=== PATIENT | female | born 1985 | race Caucasian/White ===

== ENCOUNTER 2023-10-02 03:23 | Emergency (ER) | payer MEDICAID, OTHER ==
[~2023-10-02] VITALS: Ht 170.2 cm; Wt 122.7 kg
[2023-10-02] MEDS: ondansetron/PF 4mg/2ml inj IV ONE (07:47)
[2023-10-02] MEDS: morphine 4 MG/ML inj SYRINge IV PRN (07:48)
[2023-10-02] MEDS: normal saline 1000ML IV soln IVB ONE (07:48)
[2023-10-02 08:01] LABS: BILIRUBIN,URINE MODERATE (Neg); CLARITY,URINE CLOUDY (Clear); COLOR,URINE YELLOW (Yellow); GLUCOSE, URINE NEGATIVE (Neg); KETONES,URINE >=80 mg/dl (Neg); LEUKOCYTE ESTERASE ,URINE NEGATIVE (Neg); NITRITES, URINE NEGATIVE (Neg); OCCULT BLOOD,URINE NEGATIVE (Neg); PROTEIN,URINE 30 mg/dl (Neg); UROBILINOGEN,URINE 0.2 E.U/dL (0.2-1.0)
[2023-10-02 08:05] LABS: BASOPHILS % (AUTO) 0.1 % (0-1); EOSINOPHILS % (AUTO) 0.1 % (0-6); HEMATOCRIT 39.4 % (35.0-45.0); LYMPHOCYTES # (AUTO) 0.9 X10'3 (1.1-4.8); LYMPHOCYTES % (AUTO) 6.1 % (21-51); MEAN CORPUSCULAR HEMOGLOBIN 29.9 PG (27.0-31.0); MEAN CORPUSCULAR HGB CONC 32.9 g/dL (33.0-36.5); MEAN CORPUSCULAR VOLUME 90.9 FL (78-98); MEAN PLATELET VOLUME 8.5 FL (7.4-10.4); MONOCYTES # (AUTO) 1.2 X10'3 (0-0.9); MONOCYTES % (AUTO) 8.5 % (2-12); NEUTROPHILS # (AUTO) 12.2 X10'3 (1.8-7.7); NEUTROPHILS % (AUTO) 85.2 % (42-75); PLATELET COUNT 390 X10'3 (140-440); RED BLOOD COUNT 4.33 X10'6 (4.20-5.60); RED CELL DISTRIBUTION WIDTH 13.6 % (11.5-14.5); WHITE BLOOD COUNT 14.3 X10'3 (4.5-11.0)
[2023-10-02 08:06] LABS: MUCUS STRANDS MANY /LPF (Neg); SQUAMOUS EPITHELIAL CELL,UR MANY /LPF (FEW); UA COLLECTION TYPE NON-SPECIFIED
[2023-10-02 08:08] LABS: BACTERIA,URINE 1+ /HPF (Neg); RBC,URINE 0-2 /HPF (0-2); WBC,URINE 0-4 /HPF (0-4)
[2023-10-02 08:21] LABS: ALBUMIN 3.7 G/DL (3.4-5.0); ANION GAP 14 (8-16); BLOOD UREA NITROGEN 20 MG/DL (7-18); BUN/CREATININE RATIO 17.2 (10.0-20.0); CALCIUM 9.3 MG/DL (8.5-10.1); CHLORIDE 101 MMOL/L (99-107); CREATININE 1.16 MG/DL (0.40-0.90); GLUCOSE 100 MG/DL (70-104); LIPASE 15 U/L (16-77); POTASSIUM 3.5 MMOL/L (3.5-5.1); SODIUM 142 MMOL/L (135-145); TOTAL CARBON DIOXIDE 27.4 MMOL/L (24-32); eCRCL 66 ML/MIN; eGFR 53 ML/MIN
[2023-10-02 09:00] LABS: URINE HCG NEGATIVE (NEG)
[2023-10-02] MEDS ORDERED: PROM25SU9 RC (10:45)
[2023-10-02] MEDS ORDERED: LANS30CA37 PO (10:45)
[2023-10-02] MEDS: proCHLORperazine 10 MG/2 ml inj IV ONE (11:01)
[2023-10-02 11:02] VITALS: PULSE 63
[2023-10-02 11:24] VITALS: BP 112/82; RESP 14; TEMP 98.4; O2SAT 100
== END 2023-10-02 11:29 | disposition home or self-care (01) ==
LOC: ER 03:24
DX: R10.13 Epigastric pain (principal); Z88.0 Allergy status to penicillin; Z88.2 Allergy status to sulfonamides
CPT/HCPCS: 36415; 74176; 80048; 81001; 81025; 83690; 84484; 85025; 96361; 96374; 96375; 99285; J0780; J2270; J2405; J7030

== ENCOUNTER 2023-10-02 22:12 | Emergency (ER) | payer MEDICAID ==
[~2023-10-02] VITALS: Ht 170.2 cm; Wt 122.0 kg
[~2023-10-02 22:12] MED LIST: LANS30CA37 PO; PROM25SU9 RC
[2023-10-03] MEDS: ondansetron/PF 4mg/2ml inj IV ONE (03:29)
[2023-10-03] MEDS: pantoprazole 40 MG vial IV ONE (03:29)
[2023-10-03] MEDS: normal saline 1000ML IV soln IVB ONE (03:32)
[2023-10-03 04:08] LABS: ALBUMIN 3.5 G/DL (3.4-5.0); ANION GAP 14 (8-16); BLOOD UREA NITROGEN 21 MG/DL (7-18); BUN/CREATININE RATIO 18.9 (10.0-20.0); CALCIUM 8.6 MG/DL (8.5-10.1); CHLORIDE 100 MMOL/L (99-107); CREATININE 1.11 MG/DL (0.40-0.90); GLUCOSE 96 MG/DL (70-104); POTASSIUM 3.4 MMOL/L (3.5-5.1); SODIUM 142 MMOL/L (135-145); TOTAL CARBON DIOXIDE 28.3 MMOL/L (24-32); eCRCL 69 ML/MIN; eGFR 56 ML/MIN
[2023-10-03] MEDS: proCHLORperazine 10 MG/2 ml inj IV ONE ×2 (04:58→11:54)
[2023-10-03 09:45] LABS: THYROID STIMULATING HORMONE 5.91 ulU/ml (0.34-4.50)
[2023-10-03 12:13] VITALS: BP 118/79; PULSE 72; RESP 18; TEMP 98; O2SAT 99
== END 2023-10-03 12:16 | disposition home or self-care (01) ==
LOC: ER 22:13
DX: R11.2 Nausea with vomiting, unspecified (principal); E03.9 Hypothyroidism, unspecified; F17.200 Nicotine dependence, unspecified, uncomplicated; Z88.0 Allergy status to penicillin; Z88.2 Allergy status to sulfonamides; Z79.899 Other long term (current) drug therapy
CPT/HCPCS: 36415; 80048; 84439; 84443; 93005; 96365; 96375; 96376; 99285; C9113; J0780; J2405; J7030

== ENCOUNTER 2023-11-19 04:19 | Emergency (ER) | payer MEDICAID ==
[~2023-11-19] VITALS: Ht 170.2 cm; Wt 116.3 kg
[2023-11-19] MEDS ORDERED: ondansetron 4mg rapidly disintigrating tab PO ONE (05:10)
[2023-11-19 05:14] LABS: BASOPHILS # (AUTO) 0.1 X10'3 (0-0.2); BASOPHILS % (AUTO) 0.5 % (0-1); EOSINOPHILS # (AUTO) 0.3 X10'3 (0-0.9); EOSINOPHILS % (AUTO) 2.3 % (0-6); HEMATOCRIT 40.7 % (35.0-45.0); HEMOGLOBIN 13.5 g/dl (12.0-16.0); MEAN CORPUSCULAR HEMOGLOBIN 30.3 PG (27.0-31.0); MEAN CORPUSCULAR HGB CONC 33.2 g/dL (33.0-36.5); MEAN CORPUSCULAR VOLUME 91.3 FL (78-98); MEAN PLATELET VOLUME 8.3 FL (7.4-10.4); MONOCYTES # (AUTO) 0.9 X10'3 (0-0.9); MONOCYTES % (AUTO) 7.3 % (2-12); NEUTROPHILS # (AUTO) 8.7 X10'3 (1.8-7.7); NEUTROPHILS % (AUTO) 72.9 % (42-75); PLATELET COUNT 359 X10'3 (140-440); RED BLOOD COUNT 4.46 X10'6 (4.20-5.60); RED CELL DISTRIBUTION WIDTH 13.3 % (11.5-14.5); WHITE BLOOD COUNT 11.9 X10'3 (4.5-11.0)
[2023-11-19] MEDS: ondansetron/PF 4mg/2ml inj IV ONE (05:17)
[2023-11-19 05:32] LABS: ALANINE AMINOTRANSFERASE 15 U/L (12-78); ALBUMIN 3.5 G/DL (3.4-5.0); ALKALINE PHOSPHATASE 81 IU/L (46-116); ANION GAP 12 (8-16); ASPARTATE AMINO TRANSFERASE 12 U/L (10-37); BILIRUBIN,TOTAL 0.2 MG/DL (0.1-1.0); BLOOD UREA NITROGEN 12 MG/DL (7-18); BUN/CREATININE RATIO 13.8 (10.0-20.0); CALCIUM 8.6 MG/DL (8.5-10.1); CHLORIDE 105 MMOL/L (99-107); CREATININE 0.87 MG/DL (0.40-0.90); GLUCOSE 123 MG/DL (70-104); LIPASE 22 U/L (16-77); POTASSIUM 3.7 MMOL/L (3.5-5.1); SODIUM 140 MMOL/L (135-145); TOTAL CARBON DIOXIDE 23.1 MMOL/L (24-32); TOTAL PROTEIN 7.1 G/DL (6.4-8.2); eCRCL 88 ML/MIN; eGFR 74 ML/MIN
[2023-11-19] MEDS ORDERED: ketorolac trometh. 30mg/ml inj. IV ONE (05:40)
[2023-11-19] MEDS: normal saline 1000ml 1,000 ML IV ONE ×2 (05:47→09:15)
[2023-11-19] MEDS: ketorolac tromethamine 15mg/ml inj. IV ONE (05:48)
[2023-11-19] MEDS: fentaNYL/PF 50MCG/1 ML 2ML syringe IV ONE (05:48)
[2023-11-19] MEDS: proCHLORperazine 10 MG/2 ml inj IV ONE (06:42)
[2023-11-19] MEDS: metoclopramide 5 mg/ml inj IV ONE (09:12)
[2023-11-19 10:24] LABS: BILIRUBIN,URINE SMALL (Neg); CLARITY,URINE SLIGHTLY CLOUDY (Clear); COLOR,URINE YELLOW (Yellow); GLUCOSE, URINE NEGATIVE (Neg); KETONES,URINE 40 mg/dl (Neg); LEUKOCYTE ESTERASE ,URINE NEGATIVE (Neg); NITRITES, URINE NEGATIVE (Neg); OCCULT BLOOD,URINE NEGATIVE (Neg); PROTEIN,URINE NEGATIVE (Neg); UROBILINOGEN,URINE 0.2 E.U/dL (0.2-1.0)
[2023-11-19 10:35] LABS: UA COLLECTION TYPE CLN CATCH MIDSTREAM; URINE HCG NEGATIVE (NEG)
[2023-11-19 10:36] LABS: BACTERIA,URINE FEW /HPF (Neg); MUCUS STRANDS FEW /LPF (Neg); RBC,URINE 0-2 /HPF (0-2); SQUAMOUS EPITHELIAL CELL,UR MODERATE /LPF (FEW); WBC,URINE 0-4 /HPF (0-4)
[2023-11-19 10:43] VITALS: BP 133/77; PULSE 60; RESP 14; TEMP 97.2; O2SAT 98
== END 2023-11-19 10:41 | disposition home or self-care (01) ==
LOC: ER 04:20
DX: R11.15 Cyclical vomiting syndrome unrelated to migraine (principal); E03.9 Hypothyroidism, unspecified; Z88.0 Allergy status to penicillin; Z88.2 Allergy status to sulfonamides; Z79.899 Other long term (current) drug therapy
CPT/HCPCS: 36415; 80053; 81001; 81025; 83690; 85025; 96361; 96374; 96375; 99285; J0780; J1885; J2405; J2765; J3010; J7030

== ENCOUNTER 2023-12-28 03:21 | Emergency (ER) | payer MEDICAID ==
[~2023-12-28] VITALS: Ht 170.2 cm; Wt 122.7 kg
[2023-12-28] MEDS: ondansetron 4mg rapidly disintigrating tab PO ONE (04:28)
[2023-12-28 04:41] LABS: BASOPHILS # (AUTO) 0.1 X10'3 (0-0.2); BASOPHILS % (AUTO) 1.1 % (0-1); EOSINOPHILS % (AUTO) 0.3 % (0-6); HEMATOCRIT 42.9 % (35.0-45.0); HEMOGLOBIN 14.1 g/dl (12.0-16.0); LYMPHOCYTES # (AUTO) 0.9 X10'3 (1.1-4.8); MEAN CORPUSCULAR HEMOGLOBIN 29.8 PG (27.0-31.0); MEAN CORPUSCULAR HGB CONC 32.9 g/dL (33.0-36.5); MEAN CORPUSCULAR VOLUME 90.5 FL (78-98); MEAN PLATELET VOLUME 8.6 FL (7.4-10.4); MONOCYTES # (AUTO) 0.2 X10'3 (0-0.9); MONOCYTES % (AUTO) 2.7 % (2-12); NEUTROPHILS # (AUTO) 4.7 X10'3 (1.8-7.7); NEUTROPHILS % (AUTO) 80.9 % (42-75); PLATELET COUNT 302 X10'3 (140-440); RED BLOOD COUNT 4.75 X10'6 (4.20-5.60); RED CELL DISTRIBUTION WIDTH 13.2 % (11.5-14.5); WHITE BLOOD COUNT 5.8 X10'3 (4.5-11.0)
[2023-12-28 04:53] LABS: GLUCOSE 135 MG/DL (70-104)
[2023-12-28 04:54] LABS: ALANINE AMINOTRANSFERASE 18 U/L (12-78); ALBUMIN 3.9 G/DL (3.4-5.0); ALKALINE PHOSPHATASE 100 IU/L (46-116); ANION GAP 12 (8-16); ASPARTATE AMINO TRANSFERASE 9 U/L (10-37); BILIRUBIN,TOTAL 0.3 MG/DL (0.1-1.0); BLOOD UREA NITROGEN 11 MG/DL (7-18); BUN/CREATININE RATIO 10.7 (10.0-20.0); CHLORIDE 103 MMOL/L (99-107); CREATININE 1.03 MG/DL (0.40-0.90); LIPASE 17 U/L (16-77); POTASSIUM 3.5 MMOL/L (3.5-5.1); SODIUM 140 MMOL/L (135-145); TOTAL CARBON DIOXIDE 25.1 MMOL/L (24-32); TOTAL PROTEIN 7.7 G/DL (6.4-8.2); eCRCL 73 ML/MIN; eGFR 61 ML/MIN
[2023-12-28] MEDS: proCHLORperazine 10 MG/2 ml inj IV ONE (04:57)
[2023-12-28] MEDS: famotidine/PF 10 mg/ml inj IV ONE (05:24)
[2023-12-28] MEDS: metoclopramide 5 mg/ml inj IV ONE (05:25)
[2023-12-28] MEDS: normal saline 1000ml 1,000 ML IV ONE (05:25)
[2023-12-28 05:51] LABS: BILIRUBIN,URINE NEGATIVE (Neg); CLARITY,URINE CLOUDY (Clear); COLOR,URINE YELLOW (Yellow); GLUCOSE, URINE NEGATIVE (Neg); KETONES,URINE 15 mg/dl (Neg); LEUKOCYTE ESTERASE ,URINE NEGATIVE (Neg); NITRITES, URINE NEGATIVE (Neg); OCCULT BLOOD,URINE NEGATIVE (Neg); PH,URINE 5.5 (4.8-8.0); PROTEIN,URINE NEGATIVE (Neg); URINE HCG NEGATIVE (NEG); UROBILINOGEN,URINE 0.2 E.U/dL (0.2-1.0)
[2023-12-28 06:00] LABS: MUCUS STRANDS MODERATE /LPF (Neg); SQUAMOUS EPITHELIAL CELL,UR MANY /LPF (FEW); UA COLLECTION TYPE CLN CATCH MIDSTREAM
[2023-12-28 06:01] LABS: HYALINE CASTS 0-3 /LPF (NEGATIVE)
[2023-12-28 06:02] LABS: AMORPHOUS URATES 1+; BACTERIA,URINE 2+ /HPF (Neg)
[2023-12-28] MEDS: normal saline 1000ML IV soln IVB ONE (07:27)
[2023-12-28] MEDS: diphenhydrAMINE 50 mg/ml inj IV ONE (07:40)
[2023-12-28] MEDS: magnesium 2GM in 50ml NS 50 ML IV ONE (07:41)
[2023-12-28] MEDS: haloperidol lactate 5mg/ml inj IM ONE (07:41)
[2023-12-28] MEDS ORDERED: ONDA4TAB12 PO (09:19)
[2023-12-28 09:49] VITALS: BP 125/78; PULSE 85; RESP 14; TEMP 98.5; O2SAT 98
== END 2023-12-28 09:47 | disposition home or self-care (01) ==
LOC: ER 03:21
DX: R11.15 Cyclical vomiting syndrome unrelated to migraine (principal); E03.9 Hypothyroidism, unspecified; M79.7 Fibromyalgia; Z72.89 Other problems related to lifestyle; Z88.0 Allergy status to penicillin; Z88.2 Allergy status to sulfonamides; Z79.899 Other long term (current) drug therapy
CPT/HCPCS: 36415; 76700; 80053; 81001; 81025; 83690; 84145; 85025; 96361; 96365; 96372; 96375; 99285; J0780; J1200; J1630; J2765; J3475; J3490; J7030; 96366

== ENCOUNTER 2023-12-31 19:23 | Inpatient (IN) | payer MEDICAID ==
[~2023-12-31] VITALS: Ht 170.2 cm; Wt 109.1 kg
[~2023-12-31 19:23] MED LIST changes: +ONDA4TAB12 PO
[2023-12-31 20:07] LABS: BASOPHILS % (AUTO) 0.3 % (0-1); EOSINOPHILS % (AUTO) 0.3 % (0-6); HEMATOCRIT 42.6 % (35.0-45.0); HEMOGLOBIN 14.5 g/dl (12.0-16.0); LYMPHOCYTES % (AUTO) 10.9 % (21-51); MEAN CORPUSCULAR HEMOGLOBIN 30.5 PG (27.0-31.0); MEAN CORPUSCULAR VOLUME 89.6 FL (78-98); MEAN PLATELET VOLUME 8.4 FL (7.4-10.4); MONOCYTES # (AUTO) 0.3 X10'3 (0-0.9); MONOCYTES % (AUTO) 2.8 % (2-12); NEUTROPHILS % (AUTO) 85.7 % (42-75); PLATELET COUNT 291 X10'3 (140-440); RED BLOOD COUNT 4.76 X10'6 (4.20-5.60); RED CELL DISTRIBUTION WIDTH 13.5 % (11.5-14.5); WHITE BLOOD COUNT 9.4 X10'3 (4.5-11.0)
[2023-12-31 20:21] LABS: ALANINE AMINOTRANSFERASE 19 U/L (12-78); ALBUMIN 3.6 G/DL (3.4-5.0); ALKALINE PHOSPHATASE 87 IU/L (46-116); ANION GAP 9 (8-16); ASPARTATE AMINO TRANSFERASE 5 U/L (10-37); BILIRUBIN,TOTAL 0.5 MG/DL (0.1-1.0); BLOOD UREA NITROGEN 9 MG/DL (7-18); BUN/CREATININE RATIO 8.6 (10.0-20.0); CHLORIDE 104 MMOL/L (99-107); CREATININE 1.05 MG/DL (0.40-0.90); GLUCOSE 116 MG/DL (70-104); LIPASE 16 U/L (16-77); POTASSIUM 3.8 MMOL/L (3.5-5.1); SODIUM 141 MMOL/L (135-145); TOTAL CARBON DIOXIDE 27.6 MMOL/L (24-32); TOTAL PROTEIN 7.2 G/DL (6.4-8.2); eCRCL 72 ML/MIN; eGFR 59 ML/MIN
[2023-12-31] MEDS: metoclopramide 5 mg/ml inj IV ONE (21:10)
[2023-12-31] MEDS: proCHLORperazine 10 MG/2 ml inj IV ONE (22:43)
[2024-01-01] VITALS (7 sets, daily range): BP systolic 96–123; BP diastolic 56–75; PULSE 65–87; RESP 14–16; TEMP 98.1–98.4; O2SAT 95–100
[2024-01-01] MEDS: ondansetron/PF 4mg/2ml inj IV ONE (00:41)
[2024-01-01] MEDS ORDERED: potassium Cl 20 mEq SR tablet PO PRN ×2 (02:25)
[2024-01-01] MEDS ORDERED: magnesium 2GM in 50ml NS 50 ML IV PRN (02:25)
[2024-01-01] MEDS ORDERED: morphine 2 MG/ML inj. syringe IV PRN (02:25)
[2024-01-01] MEDS ORDERED: magnesium 4gm in 100ml NS 100 ML IV PRN (02:25)
[2024-01-01] MEDS ORDERED: acetaminophen 325mg tablet PO PRN ×2 (02:25)
[2024-01-01] MEDS: normal saline 1000ml 1,000 ML IV SCH (02:25)
[2024-01-01] MEDS ORDERED: HYDROcodone/acetaminophen 10/325mg tab PO PRN (02:25)
[2024-01-01] MEDS ORDERED: HYDROcodone/acetaminophen 5mg/325mg tablet PO PRN (02:25)
[2024-01-01] MEDS ORDERED: potassium Cl 40MEQ/1/2NS 520ml 520 ML IV PRN (02:25)
[2024-01-01] MEDS ORDERED: ondansetron/PF 4mg/2ml inj IV PRN (02:25)
[2024-01-01] MEDS ORDERED: magnesium Cl slow-release 64mg tablet PO PRN (02:25)
[2024-01-01] MEDS: sodium chloride 0.45% 1,000 ML IV SCH (02:35)
[2024-01-01] MEDS ORDERED: iohexol 300mg/ml 100ml inj. ONE (02:39)
[2024-01-01 02:42] LABS: BILIRUBIN,URINE SMALL (Neg); CLARITY,URINE CLOUDY (Clear); COLOR,URINE YELLOW (Yellow); GLUCOSE, URINE NEGATIVE (Neg); KETONES,URINE >=80 mg/dl (Neg); LEUKOCYTE ESTERASE ,URINE NEGATIVE (Neg); NITRITES, URINE NEGATIVE (Neg); OCCULT BLOOD,URINE NEGATIVE (Neg); PROTEIN,URINE TRACE mg/dl (Neg); URINE HCG NEGATIVE (NEG); UROBILINOGEN,URINE 0.2 E.U/dL (0.2-1.0)
[2024-01-01 02:58] LABS: URINE AMPHETAMINE SCREEN NEGATIVE (Neg); URINE BARBITUATE SCREEN NEGATIVE (Neg); URINE BENZODIAZEPINES SCREEN NEGATIVE (Neg); URINE CANNABINOID SCREEN POSITIVE (Neg); URINE COCAINE SCREEN NEGATIVE (Neg); URINE METHADONE SCREEN NEGATIVE (Neg); URINE OPIATE SCREEN NEGATIVE (Neg); URINE PHENCYCLIDINE SCREEN NEGATIVE (Neg)
[2024-01-01 03:09] LABS: UA COLLECTION TYPE CLN CATCH MIDSTREAM
[2024-01-01 03:10] LABS: RBC,URINE NONE SEEN /HPF (0-2); SQUAMOUS EPITHELIAL CELL,UR MANY /LPF (FEW); WBC,URINE 0-4 /HPF (0-4)
[2024-01-01 03:11] LABS: BACTERIA,URINE 3+ /HPF (Neg); MUCUS STRANDS MANY /LPF (Neg)
[2024-01-01] MEDS: levoFLOXACIN-Levaquin 500mg/D5 100 ML IV ONE (03:11)
[2024-01-01] MEDS: ondansetron/PF 4mg/2ml inj IM SCH (03:12)
[2024-01-01] MEDS ORDERED: NORT25CA PO (03:19)
[2024-01-01] MEDS ORDERED: NALT50TA PO (03:19)
[2024-01-01] MEDS ORDERED: LEVO137T2 PO (03:19)
[2024-01-01] MEDS ORDERED: ARIP10TA57 PO (03:19)
[2024-01-01] MEDS ORDERED: DULO30CA52 PO (03:19)
[2024-01-01] MEDS ORDERED: BUPR-564 (03:19)
[2024-01-01] MEDS ORDERED: GABA300T28 PO (03:19)
[2024-01-01] MEDS: morphine 2 MG/ML inj. syringe IV PRN (04:01)
[2024-01-01] MEDS: metoclopramide 5 mg/ml inj IV ONE (06:03)
[2024-01-01] MEDS: heparin, porcine 5000 units/ml vial SQ SCH (09:32)
[2024-01-01] MEDS ORDERED: DULO60CA65 PO (09:39)
[2024-01-01] MEDS: nicotine 7mg patch - 24hr TD SCH (11:05)
[2024-01-01] MEDS: PEG 3350/Na sulf,bicarb,Cl/KCl oral sol 4 liter bottle PO ONE (15:13)
[2024-01-01] MEDS: duloxetine 30mg CAPSULE.DR PO SCH ×2 (15:22→21:27)
[2024-01-01] MEDS: nortriptyline 25mg capsule PO SCH (21:00)
[2024-01-01] MEDS: gabapentin 300mg capsule PO SCH (21:11)
[2024-01-01] MEDS: vancomycin/NS 1 GM ADD-VANTAGE 250 ML IV SCH (23:11)
[2024-01-02] VITALS (14 sets, daily range): BP systolic 109–134; BP diastolic 51–82; PULSE 55–80; RESP 14–20; TEMP 97–98.4; O2SAT 98–100
[2024-01-02 07:16] LABS: BASOPHILS % (AUTO) 0.4 % (0-1); EOSINOPHILS # (AUTO) 0.1 X10'3 (0-0.9); HEMATOCRIT 36.2 % (35.0-45.0); HEMOGLOBIN 11.9 g/dl (12.0-16.0); LYMPHOCYTES # (AUTO) 2.4 X10'3 (1.1-4.8); LYMPHOCYTES % (AUTO) 41.6 % (21-51); MEAN CORPUSCULAR HEMOGLOBIN 29.8 PG (27.0-31.0); MEAN CORPUSCULAR VOLUME 90.4 FL (78-98); MEAN PLATELET VOLUME 8.6 FL (7.4-10.4); MONOCYTES # (AUTO) 0.6 X10'3 (0-0.9); MONOCYTES % (AUTO) 11.1 % (2-12); NEUTROPHILS # (AUTO) 2.6 X10'3 (1.8-7.7); NEUTROPHILS % (AUTO) 45.9 % (42-75); PLATELET COUNT 241 X10'3 (140-440); RED BLOOD COUNT 4.01 X10'6 (4.20-5.60); RED CELL DISTRIBUTION WIDTH 13.1 % (11.5-14.5); WHITE BLOOD COUNT 5.8 X10'3 (4.5-11.0)
[2024-01-02] MEDS: levoTHYROXINE 112mcg tablet PO SCH (07:23)
[2024-01-02] MEDS: levoTHYROXINE 25mcg tablet PO SCH (07:25)
[2024-01-02 07:44] LABS: ALANINE AMINOTRANSFERASE 16 U/L (12-78); ALBUMIN 2.7 G/DL (3.4-5.0); ALKALINE PHOSPHATASE 62 IU/L (46-116); ANION GAP 9 (8-16); ASPARTATE AMINO TRANSFERASE 10 U/L (10-37); BILIRUBIN,TOTAL 0.3 MG/DL (0.1-1.0); BLOOD UREA NITROGEN 5 MG/DL (7-18); BUN/CREATININE RATIO 5.1 (10.0-20.0); CALCIUM 8.2 MG/DL (8.5-10.1); CHLORIDE 107 MMOL/L (99-107); CREATININE 0.99 MG/DL (0.40-0.90); GLUCOSE 78 MG/DL (70-104); POTASSIUM 3.5 MMOL/L (3.5-5.1); SODIUM 143 MMOL/L (135-145); TOTAL CARBON DIOXIDE 27.5 MMOL/L (24-32); TOTAL PROTEIN 5.4 G/DL (6.4-8.2); eCRCL 76 ML/MIN; eGFR 63 ML/MIN
[2024-01-02 10:44] LABS: APTT 26 SECONDS (22-32); INR 1.1 INR; PROTHROMBIN TIME 11.2 SECONDS (9.0-12.0)
[2024-01-02] MEDS ORDERED: MIDAZolam 1 MG/ML 5ML VIAL ONE (15:09)
[2024-01-02] MEDS ORDERED: fentaNYL/PF 50MCG/1 ML 2ML syringe ONE (15:09)
[2024-01-02] MEDS ORDERED: LIDOcaine 2% Viscous 15ml cup ONE (15:10)
[2024-01-02] MEDS ORDERED: diphenhydrAMINE 50 mg/ml inj ONE (15:10)
[2024-01-02] MEDS ORDERED: PANT-47 PO (18:00)
[2024-01-02] MEDS: sincalide inj 2.2 MCG in normal saline 100ml IV soln 100 ML IV ONE (18:40)
[2024-01-02] MEDS ORDERED: VANCOMYCIN LEVEL IV ONE (22:30)
== END 2024-01-02 20:06 | disposition home or self-care (01) | DRG 243 ==
LOC: ER 19:23 → SUR 3N 01-01 02:28 → OBSVTOIN 01-01 13:11
PROVIDERS: ADMIT Internal Medicine; ATTEND Internal Medicine
PROC: 0DBE8ZX Excision of Large Intestine, Via Natural or Artificial Opening Endoscopic, Diagnostic (ICD-10-PCS; principal; 2024-01-02)
PROC: 0DB78ZX Excision of Stomach, Pylorus, Via Natural or Artificial Opening Endoscopic, Diagnostic (ICD-10-PCS; 2024-01-02)
DX: K21.01 Gastro-esophageal reflux disease with esophagitis, with bleeding (principal); E06.3 Autoimmune thyroiditis; F12.10 Cannabis abuse, uncomplicated; F32.A Depression, unspecified; F41.9 Anxiety disorder, unspecified; K29.70 Gastritis, unspecified, without bleeding; K29.80 Duodenitis without bleeding; K52.9 Noninfective gastroenteritis and colitis, unspecified; K25.9 Gastric ulcer, unspecified as acute or chronic, without hemorrhage or perforation; M79.7 Fibromyalgia; Z87.891 Personal history of nicotine dependence; Z88.0 Allergy status to penicillin; Z88.2 Allergy status to sulfonamides
CPT/HCPCS: 36415; 43239; 45380; 74177; 80053; 80305; 81001; 81025; 82948; 83690; 84145; 85025; 85610; 85651; 85730; 87040; 87077; 87081; 87186; 99152; 99153; 99285; A4620; G0378; J0780; J1200; J1644; J1956; J2250; J2270; J2405; J2765; J3010; J3370; J3490; J7030; Q9967